=== PATIENT | female | born 1985 | race Caucasian/White ===

== ENCOUNTER 2018-05-25 13:28 | Emergency (ER) | payer MEDICAID ==
[~2018-05-25] VITALS: Ht 157.5 cm; Wt 61.2 kg
[~2018-05-25 13:28] MED LIST: Naprosyn500 MG PO; Norco 5-325 Ta1 EACH PO; Zithromax250 MG PO; Zofran Odt8 MG SL
== END 2018-05-25 14:16 | disposition left against medical advice (07) ==
LOC: ER 13:28
DX: Z53.21 Procedure and treatment not carried out due to patient leaving prior to being seen by health care provider (principal)
CPT/HCPCS: 81000; 81025; 99282

== ENCOUNTER 2019-12-22 12:15 | Emergency (ER) | payer OTHER ==
[~2019-12-22] VITALS: Ht 157.5 cm; Wt 61.2 kg
[2019-12-22] MEDS ORDERED: Norco 10-325 T1 EACH PO (14:29)
[2019-12-22] MEDS ORDERED: ONDA4ODT MM (14:29)
[2019-12-22] MEDS ORDERED: IBUP800 PO (14:29)
[2019-12-22] MEDS ORDERED: Fluocinolone Ac15 G1 TOP (14:34)
== END 2019-12-22 14:45 | disposition home or self-care (01) ==
LOC: ER 12:15
DX: S16.1XXA Strain of muscle, fascia and tendon at neck level, initial encounter (principal); S46.912A Strain of unspecified muscle, fascia and tendon at shoulder and upper arm level, left arm, initial encounter; V43.52XA Car driver injured in collision with other type car in traffic accident, initial encounter; Z88.0 Allergy status to penicillin; F17.200 Nicotine dependence, unspecified, uncomplicated
CPT/HCPCS: 72040; 73030; 81025; 99284-25

== ENCOUNTER 2020-01-17 20:24 | Emergency (ER) | payer OTHER ==
[~2020-01-17] VITALS: Ht 157.5 cm; Wt 61.2 kg
[~2020-01-17 20:24] MED LIST changes: +Fluocinolone Ac15 G1 TOP; +IBUP800 PO; +Norco 10-325 T1 EACH PO; +ONDA4ODT MM
[2020-01-17] MEDS ORDERED: Cleocin HCl300 MG PO (22:11)
== END 2020-01-17 22:18 | disposition home or self-care (01) ==
LOC: ER 20:24
DX: L03.116 Cellulitis of left lower limb (principal); G43.909 Migraine, unspecified, not intractable, without status migrainosus; F17.210 Nicotine dependence, cigarettes, uncomplicated; Z88.0 Allergy status to penicillin
CPT/HCPCS: 73610; 99283-25; A9270; J0780; J1885

== ENCOUNTER 2020-02-10 13:35 | Emergency (ER) | payer OTHER ==
[~2020-02-10] VITALS: Ht 157.5 cm; Wt 61.2 kg
[~2020-02-10 13:35] MED LIST changes: +Cleocin HCl300 MG PO
[2020-02-10] MEDS ORDERED: ALLERCLEAR10 MG PO (14:29)
[2020-02-10] MEDS ORDERED: Triamcinolone A15 G3 TOP (14:29)
== END 2020-02-10 14:37 | disposition home or self-care (01) ==
LOC: ER 13:35
DX: L25.9 Unspecified contact dermatitis, unspecified cause (principal); F17.210 Nicotine dependence, cigarettes, uncomplicated
CPT/HCPCS: 99282

== ENCOUNTER → 2020-02-19 | Outpatient (CLI) | payer OTHER ==
[~2020-02-19] MED LIST changes: +ALLERCLEAR10 MG PO; +Triamcinolone A15 G3 TOP
== END | disposition home or self-care (01) ==
LOC: LAB SHORT 13:26 → LAB 13:26
DX: L02.91 Cutaneous abscess, unspecified (principal)
CPT/HCPCS: 87070; 87075; 87077; 87147; 87186; 87205

== ENCOUNTER → 2020-12-22 | Outpatient (CLI) | payer OTHER ==
[~2020-12-22] MED LIST changes: +FOLIVANE-OB CA1 EACH; +Percocet 5-3251 EACH PO
[2020-12-23 09:42] LABS: Candida species (DNA Probe) Negative (NEGATIVE); G. vaginalis (DNA Probe) Positive (NEGATIVE); T. vaginalis (DNA Probe) Negative (NEGATIVE)
[2020-12-23 18:07] LABS: HPV 16 Negative (Negative); HPV 18 Negative (Negative); HPV OTHER HR TYPES Negative (Negative)
== END | disposition home or self-care (01) ==
LOC: LAB SHORT 12:35 → LAB 12:35
PROVIDERS: Obstetrics & Gynecology
DX: O09.92 Supervision of high risk pregnancy, unspecified, second trimester (principal); O23.592 Infection of other part of genital tract in pregnancy, second trimester; Z01.419 Encounter for gynecological examination (general) (routine) without abnormal findings
CPT/HCPCS: 87480; 87510; 87624; 87660; G0123; G0480

== ENCOUNTER 2021-05-13 06:33 | Inpatient (IN) | payer OTHER ==
[~2021-05-13] VITALS: Ht 157.5 cm; Wt 81.0 kg
[~2021-05-13 06:33] MED LIST changes: -FOLIVANE-OB CA1 EACH; -Percocet 5-3251 EACH PO
[2021-05-13 08:10] LABS: U Amphetamine Screen Not Detected; U Barbituate Screen Not Detected; U Benzodiazapine Screen Not Detected; U Buprenorphine Screen Not Detected; U Cannabinoids Screen Not Detected; U Cocaine Screen Not Detected; U Methadone Screen Not Detected; U Methamphetamine Screen Not Detected; U Opiates Screen Not Detected; U Oxycodone Screen Not Detected; U Phencyclidine Screen Not Detected; U Propoxyphene Screen Not Detected
[2021-05-13] MEDS ORDERED: FOLIVANE-OB CA1 EACH (08:44)
[2021-05-13 09:00] LABS: BASOPHILS ABSOLUTE AUTO 0.06 K/mm3 (0.00-0.23); BASOPHILS PERCENT AUTO 0 % (0-2); EOSINOPHILS ABSOLUTE AUTO 0.17 K/mm3 (0.00-0.68); EOSINOPHILS PERCENT AUTO 1 % (0-6); Hematocrit 39.2 % (33.0-51.0); Hemoglobin 12.9 g/dL (11.5-16.0); IMMATURE GRAN ABSOLUTE AUTO 0.14 K/mm3 (0.00-0.10); IMMATURE GRAN PERCENT AUTO 1 % (0-1); LYMPHOCYTES ABSOLUTE AUTO 1.79 K/mm3 (0.84-5.20); LYMPHOCYTES PERCENT AUTO 11 % (21-46); MONOCYTES PERCENT AUTO 8 % (4-13); Mean Corpuscular HGB 27.4 pg (26.0-34.0); Mean Corpuscular HGB Conc 32.9 g/dL (31.5-36.5); Mean Corpuscular Volume 83 fL (80-100); NEUTROPHILS ABSOLUTE AUTO 12.56 K/mm3 (1.96-9.15); NEUTROPHILS PERCENT AUTO 78 % (41-73); Platelet Count 465 K/mm3 (150-400); RDW Coefficient Variation 14.6 % (11.7-14.2); RDW Standard Deviation 43.9 fL (35.1-46.3); White Blood Cell Count 16.02 K/mm3 (4.00-11.30)
[2021-05-13 09:26] LABS: SARS-Cov-2 (COVID-19) PCR, MMC NEGATIVE (NEGATIVE)
--- NOTE | 2021-05-13 12:18 | NUR ---
05/13/21 1218 Stephanie Becker DELIVERY OF VIABLE FEMALE INFANT AT 1203, APGARS 9/9. CORD BLOOD SENT WITH RT. CORD BLOOD SEGMENT SENT WITH RT AND RN. PLACENTA DELIVERED MANUALLY COMPLETE.
[2021-05-13 12:22] LABS: PCO2 Cord - Arterial 62.7 mmHg (40-50); pH Cord - Arterial 7.22 (7.28-7.35)
[2021-05-13 12:24] LABS: PCO2 Cord - Venous 54.8 mmHg (40-50); pH Umbilical Cord - Venous 7.27 (7.26-7.35)
--- NOTE | 2021-05-13 13:33 | NUR ---
RUDI ICE CHIPS WELL. RUDI PAIN 04/06. HOLDING NB. NO COMPLAINTS AT THIS TIME.
[2021-05-14 05:36] LABS: BASOPHILS ABSOLUTE AUTO 0.04 K/mm3 (0.00-0.23); BASOPHILS PERCENT AUTO 0 % (0-2); EOSINOPHILS ABSOLUTE AUTO 0.18 K/mm3 (0.00-0.68); EOSINOPHILS PERCENT AUTO 1 % (0-6); Hematocrit 32.9 % (33.0-51.0); IMMATURE GRAN ABSOLUTE AUTO 0.11 K/mm3 (0.00-0.10); IMMATURE GRAN PERCENT AUTO 1 % (0-1); LYMPHOCYTES ABSOLUTE AUTO 1.41 K/mm3 (0.84-5.20); LYMPHOCYTES PERCENT AUTO 9 % (21-46); MONOCYTES ABSOLUTE AUTO 1.23 K/mm3 (0.16-1.47); MONOCYTES PERCENT AUTO 8 % (4-13); Mean Corpuscular HGB 28.4 pg (26.0-34.0); Mean Corpuscular HGB Conc 33.4 g/dL (31.5-36.5); Mean Corpuscular Volume 85 fL (80-100); Mean Platelet Volume 10.3 fL (9.1-12.4); NEUTROPHILS ABSOLUTE AUTO 12.26 K/mm3 (1.96-9.15); NEUTROPHILS PERCENT AUTO 80 % (41-73); Platelet Count 358 K/mm3 (150-400); RDW Coefficient Variation 14.6 % (11.7-14.2); RDW Standard Deviation 44.5 fL (35.1-46.3); Red Blood Cell Count 3.88 M/mm3 (3.80-5.20); White Blood Cell Count 15.23 K/mm3 (4.00-11.30)
[2021-05-14] MEDS ORDERED: Percocet 5-3251 EACH PO (12:23)
[2021-05-14] MEDS ORDERED: IBUP800 PO (12:23)
--- NOTE | 2021-05-14 12:45 | NUR ---
PT GIVEN SCRIPT FOR MOTRIN AND PERCOCET, TOOK IT OUT TO A CAR FOR SIGNIFANT OTHER TO GET THE SCRIPTS FILLED FOR HER.
--- NOTE | 2021-05-14 15:17 | NUR ---
1505 AND 1517 JOHN GAVIN CPS WORKER CALLED PT AND BABY CLEARED TO GO HOME, CPS WILL FOLLOW UP WITH PT AT HOME
--- NOTE | 2021-05-14 16:14 | NUR ---
DC HOME WITH FOB AND BABY. ENCOURAGED TO CALL WITH QUESTIONS, AMBULATE OUT WITH NO PROBLEMS
--- NOTE | 2021-05-18 11:00 | NUR ---
LATE ENTRY OR SURGICAL CHECKLIST PER EMR & RN
== END 2021-05-14 16:10 | disposition home or self-care (01) | DRG 788 ==
LOC: OBS 06:33 → BC 06:33 → OBS 10:07 → BC 10:10
PROVIDERS: Nurse Practitioner Obstetrics & Gynecology; ADMIT Obstetrics & Gynecology
PROC: 10D00Z1 Extraction of Products of Conception, Low, Open Approach (ICD-10-PCS; principal; 2021-05-13 11:15)
DX: O48.0 Post-term pregnancy (principal); O34.211 Maternal care for low transverse scar from previous cesarean delivery; Z3A.40 40 weeks gestation of pregnancy; Z37.0 Single live birth; Z20.822 Contact with and (suspected) exposure to COVID-19; O99.334 Smoking (tobacco) complicating childbirth; F17.290 Nicotine dependence, other tobacco product, uncomplicated; Z88.0 Allergy status to penicillin; Z88.5 Allergy status to narcotic agent; Z85.828 Personal history of other malignant neoplasm of skin; Z98.890 Other specified postprocedural states
CPT/HCPCS: 36415; 59025; 82803; 85025; 86850; 86900; 86901; A9270; J0690; J0694; J1170; J1885; J2370; J2590; J2765; J3010; J3360; J7120; U0004

== ENCOUNTER 2022-10-23 19:36 | Emergency (ER) | payer OTHER ==
[~2022-10-23 19:36] MED LIST changes: +FOLIVANE-OB CA1 EACH; +Percocet 5-3251 EACH PO
[2022-10-24] MEDS ORDERED: CLIN300 PO (01:21)
[2022-10-24] MEDS ORDERED: SULTRIDS PO (01:21)
== END 2022-10-24 01:42 | disposition home or self-care (01) ==
DX: M79.641 Pain in right hand (principal); M79.642 Pain in left hand; R07.81 Pleurodynia; S71.151A Open bite, right thigh, initial encounter; F17.210 Nicotine dependence, cigarettes, uncomplicated; Y04.2XXA Assault by strike against or bumped into by another person, initial encounter; Y04.1XXA Assault by human bite, initial encounter; Z88.0 Allergy status to penicillin; Z88.5 Allergy status to narcotic agent

== ENCOUNTER 2023-01-19 16:59 | Emergency (ER) | payer OTHER ==
[~2023-01-19] VITALS: Ht 157.5 cm; Wt 52.2 kg
[~2023-01-19 16:59] MED LIST changes: +CLIN300 PO; +SULTRIDS PO
[2023-01-19] MEDS ORDERED: PSEU120ER PO (17:19)
[2023-01-19] MEDS ORDERED: PSEUDOEPHEDRINE30 M1 PO (17:22)
== END 2023-01-19 17:30 | disposition home or self-care (01) ==
LOC: ER 16:59
DX: H74.8X3 Other specified disorders of middle ear and mastoid, bilateral (principal); F17.210 Nicotine dependence, cigarettes, uncomplicated
CPT/HCPCS: 99283

== ENCOUNTER 2023-06-01 13:58 | Emergency (ER) | payer OTHER ==
[~2023-06-01] VITALS: Ht 157.5 cm; Wt 52.2 kg
[~2023-06-01 13:58] MED LIST changes: +PSEU120ER PO; +PSEUDOEPHEDRINE30 M1 PO
[2023-06-01 14:14] VITALS: BP 146/85
[2023-06-01 16:33] LABS: BASOPHILS ABSOLUTE AUTO 0.02 K/mm3 (0.00-0.23); BASOPHILS PERCENT AUTO 0 % (0-2); EOSINOPHILS ABSOLUTE AUTO 0.15 K/mm3 (0.00-0.68); EOSINOPHILS PERCENT AUTO 3 % (0-6); Hematocrit 45.1 % (33.0-51.0); IMMATURE GRAN ABSOLUTE AUTO 0.06 K/mm3 (0.00-0.10); IMMATURE GRAN PERCENT AUTO 1 % (0-1); LYMPHOCYTES ABSOLUTE AUTO 1.14 K/mm3 (0.84-5.20); LYMPHOCYTES PERCENT AUTO 23 % (21-46); MONOCYTES PERCENT AUTO 10 % (4-13); Mean Corpuscular HGB 29.2 pg (26.0-34.0); Mean Corpuscular HGB Conc 33.3 g/dL (31.5-36.5); Mean Corpuscular Volume 88 fL (80-100); NEUTROPHILS ABSOLUTE AUTO 3.12 K/mm3 (1.96-9.15); NEUTROPHILS PERCENT AUTO 63 % (41-73); RDW Coefficient Variation 14.5 % (11.7-14.2); RDW Standard Deviation 46.8 fL (35.1-46.3); Red Blood Cell Count 5.14 M/mm3 (3.80-5.20); White Blood Cell Count 4.99 K/mm3 (4.00-11.30)
[2023-06-01 16:36] LABS: Albumin, Blood 3.3 g/dL (3.4-5.0); Albumin/Globulin Ratio 0.9 (0.8-1.8); Bilirubin, Total 0.9 mg/dL (0.1-1.0); Bun/Creatinine Ratio 17.1 (12.0-20.0); Calcium, Blood 8.5 mg/dL (8.5-10.1); Creatinine, Blood 0.65 mg/dL (0.40-1.00); Globulin, Blood 3.7 g/dL (2.2-4.0); Potassium, Blood 3.8 mmol/L (3.5-5.5)
[2023-06-01 17:02] LABS: Mean Platelet Volume 9.9 fL (9.1-12.4); Platelet Count 339 K/mm3 (150-400)
== END 2023-06-01 16:12 | disposition left against medical advice (07) ==
LOC: ER 13:58
PROVIDERS: Physician Assistant
DX: R11.2 Nausea with vomiting, unspecified (principal); R19.7 Diarrhea, unspecified; Z53.21 Procedure and treatment not carried out due to patient leaving prior to being seen by health care provider
CPT/HCPCS: 80053; 83690; 85025; 99281

== ENCOUNTER 2023-06-20 15:02 | Emergency (ER) | payer OTHER ==
[~2023-06-20] VITALS: Ht 157.5 cm; Wt 56.7 kg
[2023-06-20 15:16] VITALS: BP 127/86
[2023-06-20] MEDS ORDERED: ERYT.5TO LEFTEYE (18:25)
[2023-06-20] MEDS ORDERED: ONDA4 PO (18:26)
== END 2023-06-20 18:47 | disposition home or self-care (01) ==
LOC: ER 15:02
DX: T65.91XA Toxic effect of unspecified substance, accidental (unintentional), initial encounter (principal); T20.66XA Corrosion of second degree of forehead and cheek, initial encounter; T32.0 Corrosions involving less than 10% of body surface; H53.8 Other visual disturbances; G43.909 Migraine, unspecified, not intractable, without status migrainosus; Z88.0 Allergy status to penicillin; Z79.899 Other long term (current) drug therapy
CPT/HCPCS: 99283; A9270; Q0164

== ENCOUNTER 2023-11-29 20:13 | Emergency (ER) | payer OTHER ==
[~2023-11-29] VITALS: Ht 157.5 cm; Wt 63.5 kg
[~2023-11-29 20:13] MED LIST changes: +ERYT.5TO LEFTEYE; +ONDA4 PO
[2023-11-29 20:16] VITALS: BP 127/85
[2023-11-29] MEDS ORDERED: Percocet 5-3251 EACH PO (22:05)
== END 2023-11-29 22:33 | disposition home or self-care (01) ==
LOC: ER 20:13
DX: S20.212A Contusion of left front wall of thorax, initial encounter (principal); Y04.2XXA Assault by strike against or bumped into by another person, initial encounter; F17.210 Nicotine dependence, cigarettes, uncomplicated
CPT/HCPCS: 71101; 96372; 99284-25; A9270; J1885

== ENCOUNTER 2024-06-18 10:01 | Emergency (ER) | payer OTHER ==
[~2024-06-18] VITALS: Ht 157.5 cm; Wt 63.5 kg
[2024-06-18 10:25] VITALS: BP 144/105
[2024-06-18] MEDS ORDERED: Dexamethasone Sod Phos 10 MG/ML 1ML VIAL PO ONE (10:30)
[2024-06-18] MEDS ORDERED: HYDR1TAB94 PO (10:52)
[2024-06-18] MEDS ORDERED: Monodox100 MG PO (10:52)
== END 2024-06-18 11:05 | disposition home or self-care (01) ==
LOC: ER 10:01
DX: K04.7 Periapical abscess without sinus (principal); F17.210 Nicotine dependence, cigarettes, uncomplicated; Z88.0 Allergy status to penicillin; Z79.899 Other long term (current) drug therapy
CPT/HCPCS: 99282; J1100